=== PATIENT | male | born 1970 | race Caucasian/White ===

== ENCOUNTER → 2016-10-28 | Outpatient (CLI) | payer BC ==
--- NOTE | 2016-10-28 11:36 | DIAGNOSTIC IMAGING REPORT ---
TESTICULAR ULTRASOUND HISTORY: LEFT TESTICULAR PAIN COMPARISON: Testicular ultrasound 05/12/2006. FINDINGS: Right testis: 5.2 x 2.9 x 2.3 cm. There are no intratesticular masses. Normal color flow. No hydrocele. A 2 mm cyst within the epididymal head.. A 2 mm scrotal calcification. Left testis: 4.9 x 3.1 x 2.1 cm. There are no intratesticular masses. Normal color flow. No hydrocele. A 1.2 cm cyst within the left epididymal head. Small left-sided varicocele. IMPRESSION: 1. Bilateral epididymal head cysts with the largest on the left measuring 1.2 cm. 2. Normal bilateral testes. 3. Small left-sided varicocele. Electronically signed by: Charles Mar M.D. 10/28/2016 11:34 AM Dictated Date/Time: 10/28/2016 11:32 AM
== END | disposition home or self-care (01) ==
LOC: C.ULTR 11:02
PROVIDERS: ATTEND Family Medicine Adolescent Medicine
DX: N50.819 Testicular pain, unspecified (principal)